=== PATIENT | female | born 2000 | race Hispanic/Latino ===

== ENCOUNTER → 2021-04-30 | Outpatient (CLI) | payer MEDICAID | END | disposition home or self-care (01) | LOC: RAH 15:21 | PROVIDERS: ATTEND Family Medicine | DX: R92.2 Inconclusive mammogram (principal); N63.23 Unspecified lump in the left breast, lower outer quadrant | CPT/HCPCS: 76641 ==

== ENCOUNTER → 2021-05-12 | Outpatient (CLI) | payer MEDICAID ==
[2021-05-12 10:01] LABS: INR 1.06 (0.85-1.15); PROTHROMBIN TIME 11.5 SEC (9.6-11.6)
== END | disposition home or self-care (01) ==
LOC: RAH 08:41
PROVIDERS: ATTEND Family Medicine
DX: D24.2 Benign neoplasm of left breast (principal); N64.4 Mastodynia; J30.2 Other seasonal allergic rhinitis; Z79.01 Long term (current) use of anticoagulants
CPT/HCPCS: 19083; 36415; 85610; 85730; A4215 ×3; 76942